=== PATIENT | female | born 1980 | race Caucasian/White ===

== ENCOUNTER → 2018-01-22 | Outpatient (CLI) | payer BC ==
[~2018-01-22] MED LIST: ADVOCARE SUPPLEMENTS; AUGMENTIN 875875 MG PO; BENADRYL25 MG PO; BIRTH CONTROL; COLACE100 MG PO; HYDROCODON-ACE1 EAC7 PO; METOPROLOL SUCC50 MG PO; NO MEDICATIONS TAKEN; NORCO 5-325 TA1 EACH PO; PHENERGAN 25 MG25 M1 PO
== END ==
LOC: CAT 13:55
DX: I10 Essential (primary) hypertension (principal); R06.02 Shortness of breath